=== PATIENT | female | born 1955 | race Caucasian/White ===

== ENCOUNTER 2016-10-13 09:09 | Emergency (ER) | payer OTHER ==
[~2016-10-13 09:09] MED LIST: ANAPROX DS550 MG PO; ASPIRIN81 M1 PO; ATENOLOL25 MG PO; HYDR12.5C PO; IRON PO; IRON325 M1 PO; LISINOPRIL20 MG PO; METFORMIN500 MG PO; METHIMAZOLE PO; SIMVASTATIN40 MG PO; VITAMIN B1250 MCG PO; eye drops
[2016-10-13] MEDS ORDERED: FUROSEMIDE40 MG PO (09:17)
[2016-10-13] MEDS ORDERED: LOSARTAN POTAS100 M1 PO (09:18)
[2016-10-13] MEDS ORDERED: AMITRIPTYLINE25 MG PO (09:19)
[2016-10-13] MEDS ORDERED: NAPROXEN SOD.550 MG PO (09:45)
[2016-10-13] MEDS ORDERED: TYLENOL325 M1 PO (10:54)
== END 2016-10-13 11:05 | disposition home or self-care (01) ==
LOC: ED 09:09
DX: S46.111A Strain of muscle, fascia and tendon of long head of biceps, right arm, initial encounter (principal); Z98.41 Cataract extraction status, right eye; Z79.899 Other long term (current) drug therapy; Z79.82 Long term (current) use of aspirin; Z88.0 Allergy status to penicillin; Z88.6 Allergy status to analgesic agent; X58.XXXA Exposure to other specified factors, initial encounter; Y93.89 Activity, other specified; Y92.69 Other specified industrial and construction area as the place of occurrence of the external cause; Y99.9 Unspecified external cause status

== ENCOUNTER → 2017-03-17 | Outpatient (CLI) | payer OTHER ==
[~2017-03-17] MED LIST changes: +AMITRIPTYLINE25 MG PO; +FUROSEMIDE40 MG PO; +LOSARTAN POTAS100 M1 PO; +NAPROXEN SOD.550 MG PO; +TYLENOL325 M1 PO
[2017-03-17 15:28] LABS: ALBUMIN 3.7 gm/dl (3.1-4.5); CREATININE 1.19 mg/dL (0.55-1.02); PHOSPHOROUS 3.5 mg/dL (2.5-4.9); POTASSIUM 3.7 mmol/L (3.5-5.1)
== END | disposition home or self-care (01) ==
LOC: LAB 00:42 → US 14:00
PROVIDERS: Internal Medicine
DX: N18.3 Chronic kidney disease, stage 3 (moderate) (principal)

== ENCOUNTER → 2017-04-20 | Outpatient (CLI) | payer OTHER | END | disposition home or self-care (01) | LOC: MAMMO 03-23 09:30 | DX: Z12.31 Encounter for screening mammogram for malignant neoplasm of breast (principal) ==

== ENCOUNTER → 2018-08-07 | Outpatient (CLI) | payer OTHER | END | disposition home or self-care (01) | LOC: MAMMO 00:27 | DX: Z12.31 Encounter for screening mammogram for malignant neoplasm of breast (principal) ==

== ENCOUNTER → 2020-10-01 | Outpatient (CLI) | payer MEDICARE ==
[2020-10-01 16:42] LABS: BASO # 0.1 10*3/uL (0.0-0.1); BASO % 0.9 % (0.0-1.0); EOS # 0.4 10*3/uL (0.0-0.4); EOS % 6.4 % (1.0-4.0); HEMATOCRIT 38.1 % (37.0-47.0); LYMPH # 1.2 10*3/uL (1.3-4.4); LYMPH % 21.4 % (27.0-41.0); MEAN CELL VOLUME 90.9 fl (81.0-99.0); MEAN CORPUSCULAR HGB 28.6 pg (27.0-31.0); MEAN CORPUSCULAR HGB CONC 31.5 g/dl (33.0-37.0); MEAN PLATELET VOLUME 10.4 fl (9.6-12.3); MONO # 0.6 10*3/uL (0.1-1.0); NEUT # 3.4 10*3/uL (2.3-7.9); NEUT % 60.9 % (47.0-73.0); PLATELET COUNT AUTOMATED 287 10*3/uL (130-400); RED BLOOD COUNT 4.19 10*6/uL (4.10-5.10); RED CELL DISTRI WIDTH 15.3 % (0-14.5); WHITE BLOOD COUNT 5.6 10*3/uL (4.8-10.8)
[2020-10-01 17:12] LABS: ALBUMIN 3.6 gm/dl (3.1-4.5); CREATININE 1.46 mg/dL (0.55-1.02); FREE T4 0.96 ng/dl (0.76-1.46); POTASSIUM 4.1 mmol/L (3.5-5.1); TOTAL PROTEIN 8.4 gm/dL (6.4-8.2)
[2020-10-01 17:18] LABS: THYROID STIM HORMONE (HS) 1.93 uIU/ml (0.358-4.75)
[2020-10-01 18:02] LABS: VITAMIN D, 25-HYDROXY 28.2 ng/mL (30-100)
== END | disposition home or self-care (01) ==
LOC: LAB 15:12
PROVIDERS: ATTEND Internal Medicine Nephrology
DX: I10 Essential (primary) hypertension (principal); E55.9 Vitamin D deficiency, unspecified; E05.90 Thyrotoxicosis, unspecified without thyrotoxic crisis or storm; R73.09 Other abnormal glucose; E53.8 Deficiency of other specified B group vitamins

== ENCOUNTER → 2020-11-16 | Outpatient (CLI) | payer MEDICARE ==
[2020-11-16 08:53] LABS: CREATININE 1.33 mg/dL (0.55-1.02)
[2020-11-16 12:25] LABS: BILIRUBIN Negative (Negative); BLOOD Negative (Negative); CLARITY Clear (Clear); COLOR Yellow (Yellow); GLUCOSE Negative (Negative); KETONE Negative (Negative); LEUKO ESTERASE Trace (Negative); NITRITE Negative (Negative); UROBILINOGEN 0.2 E.U./dl (0.0-1.0)
[2020-11-16 12:33] LABS: URINE CREATININE RANDOM 60.6 mg/dL
[2020-11-16 13:06] LABS: EPITHELIAL CELLS 0-2; RBC 0-2 rbc/hpf (0-2)
== END | disposition home or self-care (01) ==
LOC: MAMMO 00:27 → LAB 00:27 → MAMMO 09:00
PROVIDERS: Internal Medicine Nephrology; ATTEND Internal Medicine
DX: Z12.31 Encounter for screening mammogram for malignant neoplasm of breast (principal); N17.9 Acute kidney failure, unspecified; E78.5 Hyperlipidemia, unspecified

== ENCOUNTER → 2021-04-16 | Outpatient (CLI) | payer MEDICARE | END | disposition home or self-care (01) | LOC: LAB 09:13 | PROVIDERS: ATTEND Internal Medicine Nephrology | DX: E11.9 Type 2 diabetes mellitus without complications (principal) ==

== ENCOUNTER → 2021-10-13 | Outpatient (CLI) | payer MEDICARE | END | disposition home or self-care (01) | LOC: LAB 09:23 | PROVIDERS: ATTEND Internal Medicine Nephrology | DX: R73.09 Other abnormal glucose (principal) ==

== ENCOUNTER → 2021-11-18 | Outpatient (CLI) | payer MEDICARE | END | disposition home or self-care (01) | LOC: MAMMO 00:09 | PROVIDERS: ATTEND Internal Medicine Nephrology | DX: Z12.31 Encounter for screening mammogram for malignant neoplasm of breast (principal) ==

== ENCOUNTER → 2022-11-04 | Outpatient (CLI) | payer MEDICARE | END | disposition home or self-care (01) | LOC: RAD 01:14 | PROVIDERS: ATTEND Internal Medicine | DX: Z78.0 Asymptomatic menopausal state (principal) ==

== ENCOUNTER → 2022-11-24 | Outpatient (CLI) | payer MEDICARE | END | disposition home or self-care (01) | LOC: MAMMO 01:51 | PROVIDERS: ATTEND Internal Medicine Nephrology | DX: Z12.31 Encounter for screening mammogram for malignant neoplasm of breast (principal); N64.9 Disorder of breast, unspecified ==

== ENCOUNTER → 2023-10-31 | Outpatient (CLI) | payer MEDICARE | END | disposition home or self-care (01) | LOC: RAD 12:25 | PROVIDERS: ATTEND Internal Medicine Nephrology | DX: M79.605 Pain in left leg (principal); Z96.652 Presence of left artificial knee joint ==

== ENCOUNTER → 2023-11-01 | Outpatient (CLI) | payer MEDICARE | END | disposition home or self-care (01) | LOC: RAD 01:44 → US 01:44 → RAD 19:03 | PROVIDERS: ATTEND Internal Medicine Nephrology | DX: M79.605 Pain in left leg (principal) ==

== ENCOUNTER → 2024-09-25 | Outpatient (CLI) | payer MEDICARE ==
[2024-09-25 13:22] LABS: BASO % 0.8 % (0.0-1.0); EOS # 0.5 10*3/uL (0.0-0.4); EOS % 9.3 % (1.0-4.0); HEMATOCRIT 33.3 % (37.0-47.0); MEAN CELL VOLUME 84.7 fl (81.0-99.0); MEAN CORPUSCULAR HGB 25.4 pg (27.0-31.0); MEAN PLATELET VOLUME 9.3 fl (9.6-12.3); MONO # 0.5 10*3/uL (0.1-1.0); MONO % 8.9 % (3.0-9.0); NEUT # 3.4 10*3/uL (2.3-7.9); NEUT % 65.5 % (47.0-73.0); PLATELET COUNT AUTOMATED 255 10*3/uL (130-400); RED BLOOD COUNT 3.93 10*6/uL (4.10-5.10); RED CELL DISTRI WIDTH 17.4 % (0-14.5); WHITE BLOOD COUNT 5.2 10*3/uL (4.8-10.8)
[2024-09-25 13:49] LABS: FREE T4 1.02 ng/dl (0.89-1.76); POTASSIUM 4.5 mmol/L (3.4-5.1); TOTAL PROTEIN 7.6 gm/dL (6.0-8.0)
[2024-09-25 13:50] LABS: VITAMIN D, 25-HYDROXY 33.1 ng/mL (30-100)
== END | disposition home or self-care (01) ==
LOC: LAB 12:41
PROVIDERS: ATTEND Internal Medicine Nephrology
DX: I10 Essential (primary) hypertension (principal); E55.9 Vitamin D deficiency, unspecified; R73.09 Other abnormal glucose

== ENCOUNTER → 2025-04-03 | Outpatient (CLI) | payer MEDICARE | END | disposition home or self-care (01) | LOC: MAMMO 01:40 | PROVIDERS: ATTEND Internal Medicine Nephrology | DX: Z12.31 Encounter for screening mammogram for malignant neoplasm of breast (principal) ==